=== PATIENT | male | born 1980 | race African-American/Black ===

== ENCOUNTER 2018-10-05 07:15 | Emergency (ER) | payer SELFPAY ==
[~2018-10-05] VITALS: Ht 203.2 cm; Wt 158.8 kg
--- OUTSIDE RECORDS SUMMARY | 2018-10-05 07:22 | XMS REPORT | Summary of Care ---
Author Author Edin Figueroa M.D. Organization Unknown Address Unknown Phone Unavailable Care Team Providers Care School Psychology Specialist Name Role Phone Edin Figueroa M.D. Unavailable Unavailable Gustavo Shine Unavailable Unavailable Functional Status Name Dates Details Functional status health issues are not documented Status: Name Dates Details Cognitive status health issues are not documented Status: Problems Name Dates Details Ingrown right big toenail (703.0, L60.0) Status: Active Medications Name Dates Details Metoprolol Tartrate 50 MG Oral Tablet TAKE 1 TABLET EVERY 12 HOURS DAILY. Edin Figueroa M.D. * Start 18-Jun-2016 Active Fiber-Lax 625 MG Oral Tablet USE DIRECTED. * Refills: 0 Edin Figueroa M.D. * Start 18-Jun-2016 Active ZyPREXA 2.5 MG Oral Tablet TAKE 1 TABLET DAILY. * Refills: 0 Edin Figueroa M.D. * Start 18-Jun-2016 Active BusPIRone HCl - 30 MG Oral Tablet TAKE 1 TABLET TWICE DAILY. * Refills: 0 Edin Figueroa M.D. * Start 18-Jun-2016 Active Lexapro 5 MG Oral Tablet TAKE 1 TABLET DAILY. * Refills: 0 Henry Storey.Edin Garcia * Start 18-Jun-2016 Active Depakote ER 500 MG Oral Tablet Extended Release 24 Hour TAKE 2 TABLETS DAILY. * Refills: 0 Edin Figueroa M.D. Start 18-Jun-2016 Active Allergies and Adverse Reactions Name Dates Details No Known Drug Allergies (Allergy) Status: Active Past Medical History Name Dates Details No pertinent past medical history Status: Resolved Procedures Procedure Dates Details History of Prior Surgical Procedure Not Done Procedures not documented Immunization Name Dates Details Immunizations not documented Family History Name Dates Details No pertinent family history Comments: Family History Status: Active Social History Name Dates Details Unknown if ever smoked Vital Signs Date Test Result Details No Known Vitals to report Results Date Description Value Details Results not documented Plan of Care Name Dates Details Planned Observations Planned Goals not documented Instructions Name Dates Details Instructions not documented Encounters Appointment; Edin Figueroa M.D. Encounter Diagnosis: Problem not documented On 18-Jun-2016 09:15
--- OUTSIDE RECORDS SUMMARY | 2018-10-05 07:22 | XMS REPORT | Summary of Care ---
Author Author Edin Figueroa M.D. Organization Unknown Address Unknown Phone Unavailable Care Team Providers Care Manager Development Name Role Phone Edin Figueroa M.D. Unavailable Unavailable Gustavo Shine Unavailable Unavailable Functional Status Name Dates Details Functional status health issues are not documented Status: Name Dates Details Cognitive status health issues are not documented Status: Problems Name Dates Details Active medical history not documented Status: Medications Name Dates Details Metoprolol Tartrate 50 [...] Edin Figueroa M.D. * Start 18-Jun-2016 Active Depakote ER 500 [...]
--- OUTSIDE RECORDS SUMMARY | 2018-10-05 07:23 | XMS REPORT ---
Author Deb Ghosh Organization [employer] Address Unknown Phone Unavailable Care Team Providers Care Senior Investment Manager Name Role Phone Deb No CP Unavailable Allergies, Adverse Reactions, Alerts Substance Reaction Event Type N.K.D.A. Info Not Available Non Drug Allergy Problems Problem Type Condition Code Onset Dates Condition Status Problem HTN (hypertension) I10 Active Problem Tobacco abuse Z72.0 Active Problem Morbid obesity E66.01 Active Assessment Diabetes mellitus E11.9 Active Problem Seizure disorder G40.909 Active Problem Diabetes mellitus E11.9 Active Medications Medication Code System Code Instructions Start Date End Date Status Dosage Depakote [facility] [address]-97 500 mg Orally bid 2 tablets Metoprolol Tartrate [facility] [address]-56 50 mg Orally Twice a day 1 tablet with food Keppra [facility] [address]-47 500 mg Orally every 12 hrs 3 tablets BusPIRone HCl [facility] [address]-59 15 MG Orally Twice a day 2 tablets Metformin HCl [facility] [address]-68 1000 MG Orally Twice a day Oct 12, 2016 1 tablet with meals Olanzapine [facility] [address]-08 7.5 MG Orally Once a day 1 tablet Procedures Procedure Coding System Code Date ESTAB PT LEVEL III CPT-4 41042 Oct 12, 2016 Vital Signs Date/Time: Oct 12, 2016 Temperature 98.0 F Weight 383.4 lbs Height 80 in Pain Scale 0 0-10 BMI 42.11 Index Blood Pressure Diastolic 91 mm Hg Blood Pressure Systolic 136 mm Hg Results No Known Results Summary Purpose [employer] Submission
--- OUTSIDE RECORDS SUMMARY | 2018-10-05 07:23 | XMS REPORT ---
Author Deb Ghosh Organization [employer] Address Unknown Phone Unavailable Care Team Providers Care Education Program Specialist Name Role Phone Deb No CP Unavailable Allergies, Adverse Reactions, Alerts Substance Reaction Event Type N.K.D.A. Info Not Available Non Drug Allergy Problems Problem Type Condition Code Onset Dates Condition Status Problem HTN (hypertension) I10 Active Problem Tobacco abuse Z72.0 Active Problem Morbid obesity E66.01 Active Assessment HTN (hypertension) I10 Active Problem Seizure disorder G40.909 Active Assessment Seizure disorder G40.909 Active Medications Medication Code System Code Instructions Start Date End Date Status Dosage Olanzapine [facility] [address]-19 7.5 MG Orally Once a day [address] [facility] [address]-24 500 mg Orally every 12 hrs 3 tablets BusPIRone HCl [facility] [address]-71 15 MG Orally Twice a day 2 tablets Metoprolol Tartrate [facility] [address]-87 50 mg Orally Twice a day 1 tablet with food Depakote [facility] [address]-06 500 mg Orally bid 2 tablets Procedures Procedure Coding System Code Date ESTAB PT LEVEL III CPT-4 42618 Oct 03, 2016 Vital Signs Date/Time: Oct 03, 2016 Temperature 99.4 F Weight 384.12 lbs Height 80 in Pain Scale 0 0-10 BMI 42.19 Index Blood Pressure Diastolic 91 mm Hg Blood Pressure Systolic 145 mm Hg Results Name Result Date Reference Range Unit Abnormality Flag Comp Metabolic Panel [id number] CMP ----Calcium, Serum 9.7 [id number] 8.7-10.2 mg/dL ----Carbon Dioxide, Total 23 20161003 18-29 mmol/L ----ALT (SGPT) 18 20161003 0-44 IU/L ----Creatinine, Serum 1.15 [id number] 0.76-1.27 mg/dL ----AST (SGOT) 17 20161003 0-40 IU/L ----eGFR If NonAfricn Am 81 20161003 >59 mL/min/1.73 ----Alkaline Phosphatase, S 76 66890337 39-117 IU/L ----eGFR If Africn Am 93 20161003 >59 mL/min/1.73 ----Bilirubin, Total 0.3 03720094 0.0-1.2 mg/dL ----BUN/Creatinine Ratio 11 20161003 8-19 ----A/G Ratio 1.2 20161003 1.1-2.5 ----Sodium, Serum 141 20161003 136-144 mmol/L ----Globulin, Total 3.5 77047493 1.5-4.5 g/dL ----Potassium, Serum 4.5 80257039 3.5-5.2 mmol/L ----Glucose, Serum 108 69652853 65-99 mg/dL H ----Chloride, Serum 100 37142914 97-106 mmol/L ----Albumin, Serum 4.2 39813456 3.5-5.5 g/dL ----BUN 13 27576346 6-20 mg/dL ----Protein, Total, Serum 7.7 78565451 6.0-8.5 g/dL Hgb A1c with eAG Estimation ----Hemoglobin A1c 6.5 [id number] 4.8-5.6 % H ----Estim. Avg Glu (eAG) 140 05792028 mg/dL Lipid Panel [id number] ----VLDL Cholesterol Chance 59 92756169 5-40 mg/dL H ----LDL Cholesterol Calc 143 53283174 0-99 mg/dL H ----Triglycerides 295 47861059 0-149 mg/dL H ----HDL Cholesterol 39 94893264 >39 mg/dL L ----Cholesterol, Total 241 79726364 100-199 mg/dL H Summary Purpose [employer] Submission
[2018-10-05] MEDS ORDERED: LEVE100015 PO (07:32)
[2018-10-05] MEDS ORDERED: SULF1TAB35 PO (07:47)
--- NOTE | 2018-10-05 07:47 | ED Integumentary General ---
General Chief Complaint: Skin/Wound Problems Stated Complaint: R EYE PAIN Nursing Triage Note: PT PRESENTS TO ED WITH COMPLAINTS OF WOUND/REDNESS/SWELLING UNDER R EYE. Source: patient Exam Limitations: no limitations History of Present Illness Date Seen by Provider: Oct 05, 2018 Time Seen by Provider: 07:25 Initial Comments This 38-year-old gentleman presents to the emergency room with a swelling, redness, and pain beneath the right eye. He has had a firm nodule in that area for many months but it became painful and swollen a couple of days ago. Last night he was able to express some blood and pus out of it. However, this morning it is worse. He denies any fevers. He has treated seizure disorder and denies any other health problems. He has no history of MRSA or other abscesses. The pain and swelling is now affecting his vision. Allergies and Home Medications Allergies Coded Allergies: No Known Drug Allergies (Unverified , 10/05/18) Home Medications Levetiracetam 1,000 Mg Tablet, 4,000 MG PO BID, (Reported) Sulfamethoxazole/Trimethoprim 1 Each Tablet, 1 EACH PO TID Prescribed by: EUSEBIO COLVIN on 10/05/18 0724 Patient Home Medication List Home Medication List Reviewed: Yes Review of Systems Review of Systems Constitutional: no symptoms reported EENTM: see HPI Respiratory: no symptoms reported Cardiovascular: no symptoms reported Gastrointestinal: no symptoms reported Genitourinary: no symptoms reported Musculoskeletal: no symptoms reported Skin: see HPI Psychiatric/Neurological: No Symptoms Reported Endocrine: No Symptoms Reported Hematologic/Lymphatic: No Symptoms Reported Past Vsteabv-Nwcdme-Epgamf Hx Patient Social History Alcohol Use: Occasionally Uses Alcohol Beverage of Choice: Beer Recreational Drug Use: No Smoking Status: Current Everyday Smoker Type Used: Cigarettes Recent Foreign Travel: No Contact w/Someone Who Travel: No Recent Infectious Disease Expo: No Recent Hopitalizations: No Physical Abuse: No Sexual Abuse: No Mistreated: No Fear: No Seasonal Allergies Seasonal Allergies: No Past Medical History Surgeries: Yes Gallbladder Respiratory: No Cardiac: No Neurological: Yes Seizure Disorder Genitourinary: No Gastrointestinal: No Musculoskeletal: No Endocrine: No HEENT: No Cancer: No Psychosocial: No Integumentary: No Blood Disorders: No Physical Exam Vital Signs Vital Signs - First Documented 10/05/18 07:25 Temp 96.6 Pulse 89 Resp 20 B/P (MAP) 136/89 (105) Pulse Ox 97 Capillary Refill : Less Than 3 Seconds General Appearance: WD/WN, no apparent distress HEENT: PERRL/EOMI, other (erythematous firm swelling coming to a head beneath the right eyelid) Neck: normal inspection Cardiovascular: regular rate, rhythm, no murmur Respiratory: lungs clear, normal breath sounds, no respiratory distress, no accessory muscle use Neurologic/Psychiatric: energy sales broker II-XII nml as tested, no motor/sensory deficits, alert, normal mood/affect, oriented x 3 Skin: normal color, warm/dry, other (see above) Procedures/Interventions I&D : Blade Size: 11 Progress Local anesthesia with ice was applied. Skin cleaned with chlorhexidine. A anjali incision was made over the head of the abscess. Purulent green drainage was expressed along with a firmer core. Culture was obtained. Skin was then again cleaned with chlorhexidine. Progress/Results/Core Measures Results/Orders Vital Signs/I&O 10/05/18 10/05/18 07:25 07:51 Temp 96.6 Pulse 89 82 Resp 20 16 B/P (MAP) 136/89 (105) 130/87 (101) Pulse Ox 97 98 Blood Pressure Mean: 105 Progress Progress Note : Progress Note No drainage could be expressed from the abscess. I discussed draining the abscess with the patient. He was agreeable. Ice was applied for local anesthetic. Skin was cleaned with chlorhexidine. The skin over the head was then nicked with a scalpel. Green purulent drainage was expressed along with a firmer core. Findings were consistent with sebaceous cyst that has become infected and developed abscess. This is also consistent with the patient's history. Culture was obtained and follow-up was discussed. Skin was cleaned again with chlorhexidine after the procedure. Departure Impression Primary Impression: Infected sebaceous cyst Additional Impression: Encounter for incision and drainage procedure Disposition: 01 HOME, SELF-CARE Condition: Improved Departure-Patient Inst. Decision time for Depature: 07:35 Referrals: ELIJAH SY MD (PCP/Family) Primary Care Physician Patient Instructions: SEBACEOUS CYST-I&D Add. Discharge Instructions: Complete your antibiotic as prescribed. You may continue to use warm compresses to encourage draining. You may apply antibiotic ointment as prescribed for the next couple of days. Cover with a Band-Aid or small dressing to collect any drainage. Follow-up with your primary care provider in 1 to 2 weeks. This abscess was likely caused by an infected sebaceous cyst. Removal of the cyst may be advisable to prevent recurrence of this problem. Discuss with your primary care provider. Return to care if you have worsening symptoms. You may use Tylenol (acetaminophen) and/or ibuprofen for pain. All discharge instructions reviewed with patient and/or family. Voiced understanding. Scripts Sulfamethoxazole/Trimethoprim (Bactrim Ds Tablet) 1 Each Tablet 1 EACH PO TID, #21 TAB Prov: EUSEBIO REILLY MD 10/05/18 EUSEBIO REILLY MD Oct 05, 2018 07:47
[2018-10-05 07:51] VITALS: BP 130/87
== END 2018-10-05 07:51 | disposition home or self-care (01) ==
LOC: EDUNIT# 07:15 → ER 07:18
DX: L72.3 Sebaceous cyst (principal); G40.909 Epilepsy, unspecified, not intractable, without status epilepticus; F17.210 Nicotine dependence, cigarettes, uncomplicated
CPT/HCPCS: 10060; 87070; 87077; 87205